=== PATIENT | female | born 1985 | race Caucasian/White ===

== ENCOUNTER 2016-07-10 10:34 | Emergency (ER) | payer OTHER ==
[2016-07-10 10:47] VITALS: TEMP 97.9
--- NOTE | 2016-07-10 11:16 | UCPHY ---
H & P Time Seen by Provider: 07/10/16 11:11 Patient Type: New HPI/ROS: Chief complaint. Headache HPI. Right-sided headache for 4 days. History of migraines though this seems to be worse. Using anti-inflammatories without relief. Slight blurry vision to the right eye. Slight nausea. No recent head trauma, upper respiratory infection, fever. Denies focal weakness paresthesias. ROS Constitutional. no fever/chills, no weakness Eyes. Slight blurry vision right eye ENT. no sore throat, no nasal drainage Cardiovascular. no chest pain Respiratory. no shortness of breath, no cough Abdominal. no abdominal pain, no nausea/vomiting, no diarrhea . no problems urinating MS. no calf pain/swelling, no neck/back pain, no joint pain Skin. no rash Lymph. no swollen glands Neuro. Right-sided headache Past Medical/Surgical History: Migraines Social History: Single, nonsmoker, no alcohol Smoking Status: Never smoked Constitutional: Initial Vital Signs Temperature (C) 36.6 C 07/10/16 10:45 Heart Rate 77 07/10/16 10:45 Respiratory Rate 16 07/10/16 10:45 Blood Pressure 149/99 H 07/10/16 10:45 O2 Sat (%) 96 07/10/16 10:45 O2 Delivery Mode Room Air Allergies/Adverse Reactions: No Known Allergies Allergy (Unverified 07/10/16 10:39) Home Medications: Medication Instructions Recorded Control Pills 08/03/15 Hydrocodone/APAP 5/325 [[place] 1 each PO Q4-6PRN PRN #14 tab 07/10/16 5/325 (*)] Medical Decision Making Procedures: IV normal saline. Patient given Reglan, Toradol, Benadryl. ED Course/Re-evaluation: Re-evaluation 12:15 p.m.. Patient is improved. She is conversational. She is neurologically intact. Patient and I discussed treatment plan including criteria for return and importance of follow-up and further evaluation. She expresses understanding and agreement. Patient has her regular physician in [place]. Differential Diagnosis: Likely this is migraine headache. Possibly tension headache. I have considered meningitis as well as intracranial bleeding - Data Points Medications Given: Discontinued Medications Diphenhydramine HCl (Benadryl Injection) 12.5 mg IVP EDNOW ONE Stop: 07/10/16 11:25 Last Admin: 07/10/16 11:44 Dose: 12.5 mg Sodium Chloride (Ns) 1,000 mls @ 0 mls/hr IV ONCE ONE PRN Reason: Wide Open Stop: 07/10/16 11:25 Last Admin: 07/10/16 11:45 Dose: 1,000 mls Ketorolac Tromethamine (Toradol) 30 mg IVP EDNOW ONE Stop: 07/10/16 11:25 Last Admin: 07/10/16 11:45 Dose: 30 mg Metoclopramide HCl (Reglan Injection) 10 mg IVP EDNOW ONE Stop: 07/10/16 11:25 Last Admin: 07/10/16 11:45 Dose: 10 mg Departure - Departure Disposition: Home, Routine, Self-Care Clinical Impression: Headache Qualifiers: Headache type: unspecified Headache chronicity pattern: acute headache Intractability: not intractable Qualified Code(s): R51 - Headache Condition: Good Instructions: Acute Headache (ED) Additional Instructions: Ibuprofen 600 mg every 6 hours. Hydrocodone in addition. Return for worsening headache, fever, vomiting. Recheck by your regular physician in [place] in 2- 3 days if not improved Prescriptions: Hydrocodone/APAP 5/325 [[place] 5/325 (*)] 1 each PO Q4-6PRN PRN #14 tab PRN Reason: Pain, Moderate - PQRS PQRS Measurement: 134: Depression screening and followup, PRIME MD-PHQ2 (12 years and older) Over the last 2 weeks, how often have you been bothered by any of the following problems? 1. Feeling down, depressed, or hopeless? 2. Little interest or pleasure in doing things? Patient answered no to both 1 and 2 130: Documentation of medications. Reviewed all patient medications, doses, route and frequency. 226: Do you smoke? No.
[2016-07-10] MEDS ORDERED: KETOROLAC 30 MG/1 ML SDV IVP ONE (11:24)
[2016-07-10] MEDS ORDERED: METOCLOPRAMIDE 10 MG/2 ML VIAL IVP ONE (11:24)
[2016-07-10] MEDS ORDERED: NS 1,000 ML IV ONE (11:24)
[2016-07-10 12:40] VITALS: BP 127/82; PULSE 57; RESP 15; O2SAT 97
== END 2016-07-10 12:41 | disposition home or self-care (01) ==
LOC: CED 10:34
DX: R51 Headache (principal); H53.9 Unspecified visual disturbance
CPT/HCPCS: 96361-PO; 96374-PO; 96375-PO; G0463-PO; J1200; J1885; J2765